=== PATIENT | female | born 1995 | race American Indian/Alaskan Native ===

== ENCOUNTER → 2016-10-22 | Outpatient (CLI) | payer MEDICAID | END | disposition home or self-care (01) | LOC: MW.CHOBGYN 14:43 | PROVIDERS: ATTEND Obstetrics & Gynecology | DX: Z34.90 Encounter for supervision of normal pregnancy, unspecified, unspecified trimester (principal) | CPT/HCPCS: 87070; 87491; 87591 ==

== ENCOUNTER → 2016-11-19 | Outpatient (CLI) | payer MEDICAID | LOC: MW.CHOBGYN 08:53 | PROVIDERS: ATTEND Obstetrics & Gynecology | DX: Z34.90 Encounter for supervision of normal pregnancy, unspecified, unspecified trimester (principal) | CPT/HCPCS: 81003 ==

== ENCOUNTER → 2016-12-17 | Outpatient (CLI) | payer MEDICAID | LOC: MW.CHOBGYN 08:39 | PROVIDERS: ATTEND Obstetrics & Gynecology | DX: Z34.90 Encounter for supervision of normal pregnancy, unspecified, unspecified trimester (principal) | CPT/HCPCS: 36415; 81003; 82105; 82677; 84702; 85027; 86336; 86592; 86762; 86803; 86850; 86900; 86901; 87086; 87340; 87389 ==

== ENCOUNTER → 2016-12-24 | Outpatient (CLI) | payer MEDICAID ==
--- NOTE | 2016-12-24 16:32 | US ---
Examination: Greater than 14 weeks transabdominal ultrasound with color Doppler and M-mode evaluatio n. HISTORY: Screening FINDINGS: LMP is 08/20/2016 EVALUATION: Anterior placenta with a transverse lie and grade 1. Visually amniotic fluid is wi thin normal limits. Three-vessel cord is seen. Ventricles are within normal limits. Nuchal fold thickness is 4 mm. Four chamber heart is noted. Heart rate is 150 beats per minute. BIOMETRY AND GESTATIONAL AGE: Biparietal diameter 4.0 cm. Abdominal circumference is 13 cm. The femoral length is 2.5 cm with head circumference of 14.9 cm. Gestational age is 18 weeks and 0 days. The expected date of delivery is approximately 05/27/2017. Fetus weight is 220 grams. Other detail anatomy summarized into PACs sheet after the images. No anatomical anomalies. IMPRESSION: Single active IU with transverse fetus. Anterior placenta with grade 1, no placenta previa . No anomalies are seen. Amniotic fluid appears within normal limits.
== END ==
LOC: MW.US 09:58
PROVIDERS: ATTEND Obstetrics & Gynecology
DX: Z36 Encounter for antenatal screening of mother (principal); Z3A.18 18 weeks gestation of pregnancy
CPT/HCPCS: 76805; 76805-26

== ENCOUNTER 2017-02-07 10:02 | Observation (INO) | payer MEDICAID ==
[2017-02-07] MEDS ORDERED: Acetaminophen 500 MG Tab PO ONE (11:19)
== END 2017-02-07 11:31 | disposition home or self-care (01) ==
LOC: MW.OBCHECK 10:02 → MW.OB 10:11 → MW.OBCHECK 10:28
PROVIDERS: ADMIT Obstetrics & Gynecology; ATTEND Obstetrics & Gynecology
DX: O99.89 Other specified diseases and conditions complicating pregnancy, childbirth and the puerperium (principal); M54.5 Low back pain; Z3A.26 26 weeks gestation of pregnancy; O99.512 Diseases of the respiratory system complicating pregnancy, second trimester; J45.909 Unspecified asthma, uncomplicated; Z88.0 Allergy status to penicillin; Z98.890 Other specified postprocedural states
CPT/HCPCS: 59025; 81003; A9270

== ENCOUNTER 2017-03-10 15:37 | Emergency (ER) | payer MEDICAID ==
--- NOTE | 2017-03-10 16:12 | EDM.PDOC ---
ED HPI GENERAL MEDICAL PROBLEM - General Chief Complaint: General Stated Complaint: LEFT SIDE NUMBNESS Time Seen by Provider: 03/10/17 15:56 - History of Present Illness INITIAL COMMENTS - FREE TEXT/NARRATIVE: HISTORY AND PHYSICAL: History of present illness: The patient is a 21-year-old female who is 28 weeks who presents to the ER to be evaluated for new numbness sensation of her left side of her body from her axillary area to her left knee that has been ongoing for the last 3 weeks. The patient was seen up in labor and delivery earlier for poor movement and was cleared with an NST. She presents for evaluation of this problem. She feels like it's not getting any better. She has already spoken to her OB M.D. about this who thought that maybe she might have a pinched nerve. The patient has no weakness in her extremities upper or lower has no shortness of breath fever chills chest pain or abdominal pain. She says that the symptoms wax and wane in intensity but have been there consistently for 3 weeks. It is in a stripe-like distribution and does not go to her anterior chest wall or trunk and does not go past her knee and also does not extend to her back. There are no rashes in the area of the skin is not burning itchy or painful. She really came to the ER because she thought he could get this checked out. The patient says that the numbness sensation is not in her face she has no trouble speaking or swallowing and is eating normally. Review of systems: As per history of present illness and below otherwise all systems reviewed and negative. Past medical history: As per history of present illness and as reviewed below otherwise noncontributory. Surgical history: As per history of present illness and as reviewed below otherwise noncontributory. Social history: No reported history of drug or alcohol abuse. Family history: As per history of present illness and as reviewed below otherwise noncontributory. Physical exam: General: Well-developed overweight female who is nontoxic and vital signs were noted by me HEENT: Atraumatic, normocephalic, pupils reactive, negative for conjunctival pallor or scleral icterus, mucous membranes moist, throat clear, neck supple, nontender, trachea midline. Lungs: Clear to auscultation, breath sounds equal bilaterally, chest nontender. Heart: S1S2, regular rate and rhythm no overt murmurs Abdomen: Soft, nondistended, nontender. Gravid nontender uterus is appreciated on abdominal exam Negative for costovertebral tenderness. Pelvis: Stable nontender. Genitourinary: Deferred. Rectal: Deferred. Extremities: Atraumatic, negative for cords or calf pain. Neurovascular unremarkable. Full range of motion without any defects or deficits Neuro: Awake, alert, oriented. Cranial nerves II through XII unremarkable. Cerebellum unremarkable. Motor and sensory unremarkable throughout. Exam nonfocal. There is no drift in the extremities and the strength is 5/5 throughout including dorsi and plantarflexion and inclusive of the great toe. Patient ambulated into the ED without distress. Back: There are no midline step-offs in his defects of the thoracic or lumbar spine and no posterior rib tenderness. Skin: Normal turgor there is no evidence of any rashes or lesions seen in the area the patient is describing underneath the axillary area laterally down to her leg. Diagnostics: [] Therapeutics: [] I discussed with the patient that we are extremely limited in evaluating this type of problem in the ED and in light of her 20 week we are even more limited. What she is describing does not follow any dermatomal distribution and is not consistent with a stripe-like distribution she describes. She has no weakness and I will give her referral to neurology that she can schedule an appointment although she is aware that due to her she may be limited in that evaluation as well. Impression: Paresthesias Definitive disposition and diagnosis as appropriate pending reevaluation and review of above. - Related Data Allergies Allergy/AdvReac Type Severity Reaction Status Date / Time Penicillins Allergy Anaphylactic Verified 03/07/16 01:33 Shock Home Meds: Home Meds . 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 Below) Other OB/BYN History: c section Neurological History: Reports: Seizure Psychiatric History: Reports: Anxiety, Depression, PTSD Endocrine/Metabolic History: Reports: None - Past Surgical History HEENT Surgical History: Reports: Tonsillectomy, Other (See Below) Social & Family History - Family History Family Medical History: Noncontributory - Tobacco Use Smoking Status *Q: Current Every Day Smoker Years of Tobacco use: 14 Packs/Tins Daily: 1 Second Hand Smoke Exposure: No - Caffeine Use Caffeine Use: Reports: Soda - Recreational Drug Use Recreational Drug Use: No ED ROS GENERAL - Review of Systems Review Of Systems: ROS reveals no pertinent complaints other than HPI. ED EXAM, GENERAL - Physical Exam Exam: See Below (See dictation) Course - Vital Signs Last Recorded V/S: Last Vital Signs Temp 36.6 C 03/10/17 15:52 Pulse 83 03/10/17 15:52 Resp 20 03/10/17 15:52 BP 118/66 03/10/17 15:52 Pulse Ox 97 03/10/17 15:52 Departure - Departure Time of Disposition: 16:11 Disposition: Home, Self-Care 01 Condition: Good Clinical Impression: Paresthesia - Discharge Information Forms: ED Department Discharge Additional Instructions: The following information is given to patients seen in the emergency department who are being discharged to home. This information is to outline your options for follow-up care. We provide all patients seen in our emergency department with a follow-up referral. The need for follow-up, as well as the timing and circumstances, are variable depending upon the specifics of your emergency department visit. If you don't have a primary care physician on staff, we will provide you with a referral. We always advise you to contact your personal physician following an emergency department visit to inform them of the circumstance of the visit and for follow-up with them and/or the need for any referrals to a consulting specialist. The emergency department will also refer you to a specialist when appropriate. This referral assures that you have the opportunity for followup care with a specialist. All of these measure are taken in an effort to provide you with optimal care, which includes your followup. Under all circumstances we always encourage you to contact your private physician who remains a resource for coordinating your care. When calling for followup care, please make the office aware that this follow-up is from your recent emergency room visit. If for any reason you are refused follow-up, please contact the [facility] emergency department at and ask to speak to the emergency department charge nurse. [address] [place] [address] [facility] Specialty care-Neurology Professional Building [address] [place] [address], [address] [place] [address] Please contact her provider, Dr. Pool, at [facility] for further care and evaluation of this problem and also you may contact our neurologist for an appointment with her. Keep all of your care appointment in the women's clinic and return to ER as needed and as discussed
[2017-03-10 16:27] VITALS: BP 130/80
== END 2017-03-10 16:20 | disposition home or self-care (01) ==
LOC: MW.ED 15:37
DX: O99.89 Other specified diseases and conditions complicating pregnancy, childbirth and the puerperium (principal); O99.513 Diseases of the respiratory system complicating pregnancy, third trimester; O99.333 Smoking (tobacco) complicating pregnancy, third trimester; R20.0 Anesthesia of skin; F17.210 Nicotine dependence, cigarettes, uncomplicated; Z98.890 Other specified postprocedural states; Z88.0 Allergy status to penicillin; Z3A.28 28 weeks gestation of pregnancy
CPT/HCPCS: 99282; 99283

== ENCOUNTER 2017-05-12 14:39 | Inpatient (IN) | payer MEDICAID ==
[2017-05-12] MEDS ORDERED: Butorphanol 1 MG/ML SDV IVPUSH PRN (15:47)
[2017-05-12] MEDS ORDERED: Sodium Chloride 0.9% 2.5 ML Syringe FLUSH PRN ×4 (15:47→19:41)
[2017-05-12] MEDS ORDERED: Sodium Chloride 0.9% 10 ML Syringe FLUSH PRN ×4 (15:47→19:41)
[2017-05-12] MEDS ORDERED: Lactated Ringers 1,000 ML IV SCH ×5 (16:00→22:30)
--- NOTE | 2017-05-12 18:57 | PCM.LDHP ---
L&D History of Present Illness - General Date of Service: 05/12/17 Admit Problem/Dx: Patient Status Order with Admit Dx/Problem 05/12/17 15:06 Patient Status [ADT] Routine Admission Diagnosis/Problem Admission Diagnosis/Problem 05/12/17 18:48 21 yo @ 37w6d (Previous X1 @ 35weeks for PIH ) complaining of contractions. she denies LOF , VB and reports FM. Patient recieved care at [facility] with Shira Hunt. Low risk patient She recieved care from 9 weeks X 10visits BP during antepartum visit - wnl PNL; B positive , Antibody negative , rubella - immune , Syphilis - negative , HIV - negative , GC/Cc - negative Source of Information: Patient History Limitations: Reports: No Limitations - Related Data Allergies/Adverse Reactions: Allergies Allergy/AdvReac Type Severity Reaction Status Date / Time Penicillins Allergy Anaphylactic Verified 03/07/16 01:33 Shock Home Medications: Home Meds . 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 Social & Family History - Family History Family Medical History: Noncontributory - Tobacco Use Smoking Status *Q: Current Every Day Smoker Years of Tobacco use: 6 Packs/Tins Daily: 1 Used Tobacco, but Quit: No Second Hand Smoke Exposure: Yes - Caffeine Use Caffeine Use: Reports: None - Recreational Drug Use Recreational Drug Use: No H&P Review of Systems - Review of Systems: Review Of Systems: See Below General: Reports: No Symptoms HEENT: Reports: No Symptoms Pulmonary: Reports: No Symptoms Cardiovascular: Reports: No Symptoms Gastrointestinal: Reports: No Symptoms Genitourinary: Reports: No Symptoms Musculoskeletal: Reports: No Symptoms Skin: Reports: No Symptoms Psychiatric: Reports: No Symptoms Neurological: Reports: No Symptoms Hematologic/Lymphatic: Reports: No Symptoms Immunologic: Reports: No Symptoms L&D Exam - Exam Exam: See Below - Vital Signs Vital Signs: 130s - 140s / 70s- 80s , HR;- 80- 90s Weight: 104.326 kg - OB Specific Fundal Height In cm: 37 Contraction Duration (sec): 60secs Contraction Frequency (min): 3 mins Contraction Intensity: Mild to Moderate Movement: Active Heart Tones: Present Heart Rate (FHR) Variability: Moderate (6-25 bmp) Presentation: Vertex Estimated Weight: 3200 - Edgar Score Edgar Score Cervix Position: Midposition Edgar Score Consistency: Medium Edgar Score Effacement: 31-50% Edgar Score Dilation: 1-2 cm Edgar Score Infant's Station: -2 Edgar Score Total: 5 - Exam General: Alert, Oriented Lungs: Clear to Auscultation Cardiovascular: Regular Rate, Regular Rhythm GI/Abdominal Exam: Normal Bowel Sounds, Other (gravid) Genitourinary: Cervical dilitation (09/03/-2 ) Back Exam: Normal Inspection Extremities: Normal Inspection Skin: Warm Neurological: Cranial Nerves Intact Psychiatric: Alert - Problem List (1) Previous section complicating SNOMED Code(s): 964249231 ICD Code: O34.219 - MATERNAL CARE FOR UNSP TYPE SCAR FROM PREVIOUS DEL Status: Acute Current Visit: Yes Problem List Initiated/Reviewed/Updated: Yes Orders Last 24hrs: Active Orders 24 hr Category Date Time Status Patient Status [ADT] Routine ADT 05/12/17 15:06 Active Non Stress Test [RC] PER UNIT ROUTINE Care 05/12/17 15:06 Active Peripheral IV Care [RC] . DIRECTED Care 05/12/17 15:47 Active Up ad Cyndi [RC] ASDIRECTED Care 05/12/17 15:06 Active Vaginal Exam [RC] Click to Edit Care 05/12/17 15:06 Active Vital Signs [RC] PER UNIT ROUTINE Care 05/12/17 15:06 Active Butorphanol [Stadol] Med 05/12/17 15:47 Active 1 mg IVPUSH ONETIME PRN Lactated Ringers [Ringers, Lactated] 1,000 ml Med 05/12/17 16:00 Active IV .BOLUS Sodium Chloride 0.9% [Saline Flush] Med 05/12/17 15:47 Active 10 ml FLUSH ASDIRECTED PRN Sodium Chloride 0.9% [Saline Flush] Med 05/12/17 15:47 Active 2.5 ml FLUSH ASDIRECTED PRN Peripheral IV Insertion Adult [OM.PC] Routine Oth 05/12/17 15:47 Ordered Resuscitation Status Routine Resus Stat 05/12/17 15:06 Ordered Medication Orders Butorphanol Tartrate (Stadol) 1 mg IVPUSH ONETIME PRN PRN Reason: contractions Lactated Ringer's (Ringers, Lactated) 1,000 mls @ 999 mls/hr IV .BOLUS JUAN RAMON Last Admin: 05/12/17 16:05 Dose: 999 mls/hr Sodium Chloride (Saline Flush) 10 ml FLUSH ASDIRECTED PRN PRN Reason: Keep Vein Open Sodium Chloride (Saline Flush) 2.5 ml FLUSH ASDIRECTED PRN PRN Reason: Keep Vein Open Assessment/Plan Comment:: 21yo @ 37w6d admitted for previous in labor, 1 increased BP Plan NPO IVF Mefoxin and Bicitria Consent for PIH labs Urine protein
[2017-05-12] MEDS ORDERED: Clindamycin Phosphate in D5W 900 MG in Premix Bag 1 BAG IV ONE ×4 (19:23→19:45)
[2017-05-12] MEDS ORDERED: Gentamicin Pediatric 10 MG/ML 2 ML SDV IV SCH ×2 (19:30→20:00)
[2017-05-12] MEDS ORDERED: Citric Acid/Sodium Citrate Solution 30 ML Cup PO SCH ×3 (19:30→19:45)
[2017-05-12] MEDS ORDERED: Oxytocin/0.9 % Sodium Chloride 30 UNIT/500 ML BAG IV SCH ×3 (19:30→19:45)
[2017-05-12] MEDS ORDERED: Morphine PF 10 MG/10 ML SDV ONE (19:40)
[2017-05-12] MEDS ORDERED: Clindamycin Phosphate in D5W 50 ML IV ONE (19:50)
--- NOTE | 2017-05-12 20:00 | PCM.PREANE ---
Preanesthetic Assessment - Anesthesia/Transfusion/Family Hx Anesthesia History: Prior Anesthesia Without Reaction Family History of Anesthesia Reaction: No Transfusion History: No Prior Transfusion(s) - Review of Systems General: Other (active labor) Pulmonary: No Symptoms Cardiovascular: No Symptoms Gastrointestinal: No Symptoms Neurological: No Symptoms Other: Reports: None - Physical Assessment NPO Status Date: 05/12/17 NPO Status Time: 13:00 Height: 1.65 m Weight: 104.326 kg ASA Class: 2 Mental Status: Alert & Oriented x3 Airway Class: Mallampati = 2 Dentition: Reports: Normal Dentition (tongue stud) Lungs: Clear to Auscultation, Normal Respiratory Effort Cardiovascular: Regular Rate, Regular Rhythm - Lab Values: Laboratory Last Values WBC 12.99 K/uL (4.0-11.0) H 05/12/17 19:45 RBC 4.54 M/uL (4.30-5.90) 05/12/17 19:45 Hgb 12.5 g/dL (12.0-16.0) 05/12/17 19:45 Hct 37.3 % (36.0-46.0) 05/12/17 19:45 MCV 82.2 fL (80.0-98.0) 05/12/17 19:45 MCH 27.5 pg (27.0-32.0) 05/12/17 19:45 MCHC 33.5 g/dL (31.0-37.0) 05/12/17 19:45 RDW Std Deviation 42.3 fl (28.0-62.0) 05/12/17 19:45 RDW Coeff of Jagdeep 14 % (11.0-15.0) 05/12/17 19:45 Plt Count 388 K/uL (150-400) 05/12/17 19:45 MPV 9.90 fL (7.40-12.00) 05/12/17 19:45 Nucleated RBC % 0.0 /100WBC 05/12/17 19:45 Nucleated RBCs # 0 K/uL 05/12/17 19:45 - Allergies Allergies/Adverse Reactions: Allergies Allergy/AdvReac Type Severity Reaction Status Date / Time Penicillins Allergy Anaphylactic Verified 03/07/16 01:33 Shock - Anesthesia Plan Pre-Op Medication Ordered: Antacids, Other (clindamycin plus gent) - Acknowledgements Anesthesia Type Planned: Spinal Pt an Appropriate Candidate for the Planned Anesthesia: Yes Alternatives and Risks of Anesthesia Discussed w Pt/Guardian: Yes Pt/Guardian Understands and Agrees with Anesthesia Plan: Yes PreAnesthesia Questionnaire - Past Health History Medical/Surgical History: Denies Medical/Surgical History Cardiovascular History: Reports: None Respiratory History: Reports: Asthma Gastrointestinal History: Reports: None 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 - SUBSTANCE USE Smoking Status *Q: Current Every Day Smoker Tobacco Use Within Last Twelve Months: Cigarettes, Other (See Below) Second Hand Smoke Exposure: Yes Recreational Drug Use History: No - HOME MEDS Home Medications: Home Meds . [No Known Home Meds] 01/03/16 [History] - CURRENT (IN HOUSE) MEDS Current Meds: Current Medications Butorphanol Tartrate (Stadol) 1 mg IVPUSH ONETIME PRN PRN Reason: contractions Citric Acid/Sodium Citrate (Bicitra Solution) 30 ml PO .ONCE JUAN RAMON Last Admin: 05/12/17 19:56 Dose: 30 ml Gentamicin Sulfate (Gentamicin) 300 mg IV Q12H JUAN RAMON Lactated Ringer's (Ringers, Lactated) 1,000 mls @ 500 mls/hr IV .BOLUS JUAN RAMON Last Admin: 05/12/17 19:56 Dose: 500 mls/hr Oxytocin/Sodium Chloride (Oxytocin 30 Unit/500 Ml-Ns) 30 unit in 500 mls @ 250 mls/hr IV TITRATE JUAN RAMON Sodium Chloride (Saline Flush) 10 ml FLUSH ASDIRECTED PRN PRN Reason: Keep Vein Open Sodium Chloride (Saline Flush) 2.5 ml FLUSH ASDIRECTED PRN PRN Reason: Keep Vein Open Discontinued Medications Citric Acid/Sodium Citrate (Bicitra Solution) 30 ml PO .ONCE JUAN RAMON Gentamicin Sulfate (Gentamicin) 300 mg IV Q12H JUAN RAMON Lactated Ringer's (Ringers, Lactated) 1,000 mls @ 999 mls/hr IV .BOLUS JUAN RAMON Last Admin: 05/12/17 16:05 Dose: 999 mls/hr Oxytocin/Sodium Chloride (Oxytocin 30 Unit/500 Ml-Ns) 30 unit in 500 mls @ 250 mls/hr IV TITRATE JUAN RAMON Lactated Ringer's (Ringers, Lactated) 1,000 mls @ 500 mls/hr IV .BOLUS JUAN RAMON Clindamycin Phosphate 900 mg/ (Premix) 50 mls @ 100 mls/hr IV ASDIRECTED ONE Stop: 05/12/17 19:52 Lactated Ringer's (Ringers, Lactated) 1,000 mls @ 500 mls/hr IV .BOLUS JUAN RAMON Oxytocin/Sodium Chloride (Oxytocin 30 Unit/500 Ml-Ns) 30 unit in 500 mls @ 250 mls/hr IV TITRATE JUAN RAMON Clindamycin Phosphate 900 mg/ (Premix) 50 mls @ 100 mls/hr IV ASDIRECTED ONE Stop: 05/12/17 19:52 Last Admin: 05/12/17 19:55 Dose: 100 mls/hr Clindamycin Phosphate (Cleocin In D5w) Confirm Administered Dose 50 mls @ as directed IV .STK-MED ONE Stop: 05/12/17 19:51 Morphine Sulfate (Duramorph Pf) Confirm Administered Dose 10 mg .ROUTE .STK-MED ONE Stop: 05/12/17 19:41 Sodium Chloride (Saline Flush) 10 ml FLUSH ASDIRECTED PRN PRN Reason: Keep Vein Open Sodium Chloride (Saline Flush) 2.5 ml FLUSH ASDIRECTED PRN PRN Reason: Keep Vein Open Sodium Chloride (Saline Flush) 10 ml FLUSH ASDIRECTED PRN PRN Reason: Keep Vein Open Sodium Chloride (Saline Flush) 2.5 ml FLUSH ASDIRECTED PRN PRN Reason: Keep Vein Open Sodium Chloride (Saline Flush) 10 ml FLUSH ASDIRECTED PRN PRN Reason: Keep Vein Open Sodium Chloride (Saline Flush) 2.5 ml FLUSH ASDIRECTED PRN PRN Reason: Keep Vein Open
[2017-05-12] MEDS ORDERED: SODIUM CHLORIDE 0.9% IV ONE (20:15)
[2017-05-12] MEDS ORDERED: GENTAMICIN IV ONE (20:15)
[2017-05-12 20:22] LABS: CHLORIDE,CL 109 mmol/L (98-110); SODIUM,NA 136 mmol/L (136-146)
[2017-05-12] MEDS ORDERED: Oxytocin 10 Units/1 ML SDV ONE (21:09)
[2017-05-12] MEDS ORDERED: ePHEDrine 50 MG/ML SDV ONE (21:09)
[2017-05-12] MEDS ORDERED: Phenylephrine/Normal Saline 100 MCG/ML 10 ML Syringe ONE (21:09)
[2017-05-12] MEDS ORDERED: Midazolam 1 MG/ML 2 ML SDV ONE (21:10)
[2017-05-12] MEDS ORDERED: diphenhydrAMINE 50 MG/ML SDV IVPUSH PRN ×2 (21:59→22:21)
[2017-05-12] MEDS ORDERED: Naloxone 0.4 MG/ML Syringe IVPUSH PRN (21:59)
[2017-05-12] MEDS ORDERED: fentaNYL 100 MCG/2 ML SDV IVPUSH PRN (22:01)
[2017-05-12] MEDS ORDERED: Acetaminophen/oxyCODONE 325-5 MG Tab PO PRN ×2 (22:01→22:21)
--- NOTE | 2017-05-12 22:03 | PCM.OPNOTE ---
- General Post-Op/Procedure Note Date of Surgery/Procedure: 05/12/17 Operative Procedure(s): Repeat lower transverse Findings: Live male delivered @ 841pm , Wt 2830g , 8/9 , Pre Op Diagnosis: 21 yo @37w6d Previous in labor Post-Op Diagnosis: s/p Repeat LTCS Anesthesia Technique: Spinal Primary Surgeon: Deneen Rodriguez Anesthesia Provider: Dr Carrion Fluid Replacement, Intraop: 3,500 Output, Urine Amount: 100 EBL in mLs: 600 Free Text/Narrative:: Intake & Output 05/12/17 05/12/17 05/12/17 06:59 14:59 22:59 Output Total 100 Balance -100
[2017-05-12] MEDS ORDERED: Ibuprofen 800 MG Tab PO PRN (22:21)
[2017-05-12] MEDS ORDERED: Bisacodyl 10 MG Supp RECTAL PRN (22:21)
[2017-05-12] MEDS ORDERED: Ondansetron 4 MG/2 ML SDV IV PRN (22:21)
[2017-05-12] MEDS ORDERED: Lanolin 100% Cream 7 GM Tube TOP PRN (22:21)
--- NOTE | 2017-05-12 22:30 | PCM.POSTAN ---
POST ANESTHESIA ASSESSMENT - MENTAL STATUS Mental Status: Alert, Oriented - RESPIRATORY Respiratory Status: Respiratory Rate WNL, Airway Patent, O2 Saturation Stable - CARDIOVASCULAR CV Status: Pulse Rate WNL, Blood Pressure Stable - GASTROINTESTINAL GI Status: No Symptoms - PAIN Pain Score: 0 - POST OP HYDRATION Hydration Status: Adequate & Stable
[2017-05-12] MEDS: Ketorolac 30 MG/ML SDV IVPUSH SCH (23:30)
--- NOTE | 2017-05-13 00:17 | OR ---
SURGEON: JABARI ACKERMAN DATE OF PROCEDURE: 05/12/2017 PREOPERATIVE DIAGNOSIS: A 21-year-old G2, P0-1-0 at 36 weeks 6 days with the history of previous cesarian section and labor. POSTOPERATIVE DIAGNOSIS: S/P repeat lower transverse cesarian section. ANESTHESIA: Spinal. ANESTHESIA PROVIDER: Dr. Carrion. FLUID: 500. ESTIMATED BLOOD LOSS: 600. OUTPUT: 100. FINDINGS: A live male delivered at 2041 hours. score was 8 and 9. Weight is 2830gm. Three-vessel cord noted. INDICATIONS: The patient presented to triage with contraction which started 2 days ago. The patient was examined. She was closed, long, posterior. Then she was reexamined she was . After observation the contractions in the monitor increased from 1 in 10 minutes to 1 in 3 to 4 minutes. As result of change in the patient's exam and history of previous , the patient was consented for repeat lower transverse C- section and the patient agreed the procedure. NARRATIVE: The patient was taken to the operating room, where spinal anesthesia was given without difficulty. The patient was placed in dorsal supine position with leftward tilt. A Pfannenstiel skin incision was made with scalpel and carried down to the fascia with Bovie. The fascia was incised and extended laterally. The fascia was from the rectus muscle superiorly and inferiorly. The rectus muscle was then in the midline down to the level of the pubic symphysis. The peritoneum was then entered in bluntly. The peritoneum was stretched to explore the bladder. The bladder blade was placed to put the bladder out of the operating field. The bladder incision was then made. The lower uterine segment was made which was then extended manually upwards and laterally. The fetus was cephalic position. The head was held and the membrane was ruptured. The head was brought to the operating field and fundal pressure was given to help deliver the head. with continous pressure, the shoulder and body was subsequently delivered. The cord was clamped and cut. The infant was then delivered to the awaiting cds sales advisor. The placenta was then delivered. The uterine incision was then sutured in one layer with 0 Vicryl in continuous locking fashion and hemostasis was noted, then the peritoneum was closed with 2-0 Vicryl in a continuous fashion and fascia was closed with 0 Vicryl in the continuous fashion. The subcutaneous fascia was also closed with 2-0 Monocryl and the skin was closed with 3-0 Vicryl in a Gavin needle. All instruments and pads counts were correct x2. The patient tolerated the procedure well and was taken to the recovery room in stable condition. MARTY FAIRCHILD /[id number] [id number]
[2017-05-13] MEDS: Ketorolac 30 MG/ML SDV IVPUSH SCH ×4 (05:30→22:04)
[2017-05-13] MEDS: Nalbuphine 10 MG/1 ML Vial IVPUSH PRN ×2 (06:12→17:55)
[2017-05-13] MEDS: Docusate Sodium 100 MG Cap PO SCH ×2 (09:50→20:01)
--- NOTE | 2017-05-13 11:15 | PCM.PNPP ---
- General Info Date of Service: 05/13/17 Functional Status: Reports: Pain Controlled, Tolerating Diet, Ambulating, Urinating - Review of Systems General: Reports: No Symptoms HEENT: Reports: No Symptoms Pulmonary: Reports: No Symptoms Cardiovascular: Reports: No Symptoms Gastrointestinal: Reports: No Symptoms Genitourinary: Reports: No Symptoms Musculoskeletal: Reports: No Symptoms Skin: Reports: No Symptoms Neurological: Reports: No Symptoms Psychiatric: Reports: No Symptoms - Patient Data Vital Signs - Most Recent: Last Vital Signs Temp 37.1 C 05/13/17 08:00 Pulse 114 H 05/13/17 08:00 Resp 16 05/13/17 11:00 BP 110/54 L 05/13/17 08:00 Pulse Ox 93 L 05/13/17 11:00 Weight - Most Recent: 104.326 kg I&O - Last 24 Hours: Intake & Output 05/12/17 05/13/17 05/13/17 22:59 06:59 14:59 Intake Total 7500 500 Output Total 420 350 Balance 7080 150 Lab Results - Last 24 Hours: Laboratory Results - last 24 hr 05/12/17 05/12/17 05/12/17 Range/Units 19:45 19:45 19:45 WBC 12.99 H (4.0-11.0) K/uL RBC 4.54 (4.30-5.90) M/uL Hgb 12.5 (12.0-16.0) g/dL Hct 37.3 (36.0-46.0) % MCV 82.2 (80.0-98.0) fL MCH 27.5 (27.0-32.0) pg MCHC 33.5 (31.0-37.0) g/dL RDW Std Deviation 42.3 (28.0-62.0) fl RDW Coeff of Jagdeep 14 (11.0-15.0) % Plt Count 388 (150-400) K/uL MPV 9.90 (7.40-12.00) fL Nucleated RBC % 0.0 /100WBC Nucleated RBCs # 0 K/uL INR 0.92 (0.86-1.11) Fibrinogen 403 (215-411) mg/dL Sodium 136 (136-146) mmol/L Potassium 3.9 (3.5-5.1) mmol/L Chloride 109 (98-110) mmol/L Carbon Dioxide 19 L (21-31) mmol/L BUN 10 (6.0-23.0) mg/dL Creatinine 0.5 L (0.6-1.5) mg/dL Est Cr Clr Drug Dosing 161.50 mL/min Estimated GFR (MDRD) > 60.0 ml/min Glucose 74 (60-110) mg/dL Uric Acid 3.9 (2.1-6.2) mg/dL Calcium 8.7 L (8.8-10.8) mg/dL Total Bilirubin 0.3 (0.1-1.5) mg/dL AST 14 (5-40) IU/L ALT 10 (8-54) IU/L Alkaline Phosphatase 185 H (40-150) Total Protein 6.1 (6.0-8.0) g/dL Albumin 3.0 L (3.5-5.0) g/dL Globulin 3.1 (2.0-3.5) g/dL Albumin/Globulin Ratio 1.0 L (1.3-2.8) Blood Type Antibody Screen 05/12/17 05/13/17 Range/Units 19:45 05:31 WBC (4.0-11.0) K/uL RBC (4.30-5.90) M/uL Hgb 10.6 L (12.0-16.0) g/dL Hct 32.1 L (36.0-46.0) % MCV (80.0-98.0) fL MCH (27.0-32.0) pg MCHC (31.0-37.0) g/dL RDW Std Deviation (28.0-62.0) fl RDW Coeff of Jagdeep (11.0-15.0) % Plt Count (150-400) K/uL MPV (7.40-12.00) fL Nucleated RBC % /100WBC Nucleated RBCs # K/uL INR (0.86-1.11) Fibrinogen (215-411) mg/dL Sodium (136-146) mmol/L Potassium (3.5-5.1) mmol/L Chloride (98-110) mmol/L Carbon Dioxide (21-31) mmol/L BUN (6.0-23.0) mg/dL Creatinine (0.6-1.5) mg/dL Est Cr Clr Drug Dosing mL/min Estimated GFR (MDRD) ml/min Glucose (60-110) mg/dL Uric Acid (2.1-6.2) mg/dL Calcium (8.8-10.8) mg/dL Total Bilirubin (0.1-1.5) mg/dL AST (5-40) IU/L ALT (8-54) IU/L Alkaline Phosphatase (40-150) Total Protein (6.0-8.0) g/dL Albumin (3.5-5.0) g/dL Globulin (2.0-3.5) g/dL Albumin/Globulin Ratio (1.3-2.8) Blood Type B POSITIVE Antibody Screen NEGATIVE Med Orders - Current: Current Medications Bisacodyl (Dulcolax) 10 mg RECTAL .ONCE PRN PRN Reason: Constipation Butorphanol Tartrate (Stadol) 1 mg IVPUSH ONETIME PRN PRN Reason: contractions Citric Acid/Sodium Citrate (Bicitra Solution) 30 ml PO .ONCE [facility] Last Admin: 05/12/17 19:56 Dose: 30 ml Diphenhydramine HCl (Benadryl) 25 mg IVPUSH Q4H PRN PRN Reason: Itching Stop: 05/13/17 22:00 Diphenhydramine HCl (Benadryl) 25 mg IVPUSH Q6H PRN PRN Reason: Itching or Nausea Docusate Sodium (Colace) 100 mg PO BID [facility] Emollient Ointment (Lansinoh Hpa) 0 gm TOP ASDIRECTED PRN PRN Reason: Sore Nipples Fentanyl (Sublimaze) 25 - 50 mcg IVPUSH Q30M PRN PRN Reason: Pain Lactated Ringer's (Ringers, Lactated) 1,000 mls @ 500 mls/hr IV .BOLUS [facility] Last Admin: 05/12/17 19:56 Dose: 500 mls/hr Oxytocin/Sodium Chloride (Oxytocin 30 Unit/500 Ml-Ns) 30 unit in 500 mls @ 250 mls/hr IV TITRATE JUAN RAMON Lactated Ringer's (Ringers, Lactated) 1,000 mls @ 125 mls/hr IV ASDIRECTED [facility] Last Admin: 05/13/17 01:30 Dose: 125 mls/hr Ibuprofen (Motrin) 800 mg PO Q8H PRN PRN Reason: mild pain or fever Ketorolac Tromethamine (Toradol) 30 mg IVPUSH Q6H JUAN RAMON Stop: 05/13/17 22:31 Last Admin: 05/13/17 10:30 Dose: 30 mg Nalbuphine HCl (Nubain) 5 mg IVPUSH Q3H PRN PRN Reason: Pruritis Stop: 05/13/17 22:00 Last Admin: 05/13/17 06:12 Dose: 5 mg Naloxone HCl (Narcan) 0.1 mg IVPUSH ONETIME PRN PRN Reason: Other Stop: 05/13/17 22:00 Ondansetron HCl (Zofran) 4 mg IV Q4H PRN PRN Reason: Nausea/Vomiting Last Admin: 05/13/17 01:30 Dose: 4 mg Oxycodone/Acetaminophen (Percocet 325-5 Mg) 1 - 2 tab PO Q6H PRN PRN Reason: Pain Stop: 05/14/17 14:00 Oxycodone/Acetaminophen (Percocet 325-5 Mg) 1 tab PO Q4H PRN PRN Reason: Pain (moderate 4-6) Oxycodone/Acetaminophen (Percocet 325-5 Mg) 2 tab PO Q4H PRN PRN Reason: Pain (moderate 4-6) Sodium Chloride (Saline Flush) 10 ml FLUSH ASDIRECTED PRN PRN Reason: Keep Vein Open Sodium Chloride (Saline Flush) 2.5 ml FLUSH ASDIRECTED PRN PRN Reason: Keep Vein Open Discontinued Medications Citric Acid/Sodium Citrate (Bicitra Solution) 30 ml PO .ONCE JUAN RAMON Ephedrine Sulfate (Ephedrine Sulfate) Confirm Administered Dose 50 mg .ROUTE .STK-MED ONE Stop: 05/12/17 21:10 Gentamicin Sulfate (Gentamicin) 300 mg IV Q12H JUAN RAMON Gentamicin Sulfate (Gentamicin) 300 mg IV Q12H [facility] Lactated Ringer's (Ringers, Lactated) 1,000 mls @ 999 mls/hr IV .BOLUS [facility] Last Admin: 05/12/17 16:05 Dose: 999 mls/hr Oxytocin/Sodium Chloride (Oxytocin 30 Unit/500 Ml-Ns) 30 unit in 500 mls @ 250 mls/hr IV TITRATE JUAN RAMON Lactated Ringer's (Ringers, Lactated) 1,000 mls @ 500 mls/hr IV .BOLUS JUAN RAMON Clindamycin Phosphate 900 mg/ (Premix) 50 mls @ 100 mls/hr IV ASDIRECTED ONE Stop: 05/12/17 19:52 Lactated Ringer's (Ringers, Lactated) 1,000 mls @ 500 mls/hr IV .BOLUS JUAN RAMON Oxytocin/Sodium Chloride (Oxytocin 30 Unit/500 Ml-Ns) 30 unit in 500 mls @ 250 mls/hr IV TITRATE JUAN RAMON Clindamycin Phosphate 900 mg/ (Premix) 50 mls @ 100 mls/hr IV ASDIRECTED ONE Stop: 05/12/17 19:52 Last Admin: 05/12/17 19:55 Dose: 100 mls/hr Clindamycin Phosphate (Cleocin In D5w) Confirm Administered Dose 50 mls @ as directed IV .STK-MED ONE Stop: 05/12/17 19:51 Gentamicin Sulfate 300 mg/ (Sodium Chloride) 157.5 mls @ 315 mls/hr IV ONETIME ONE Stop: 05/12/17 20:44 Midazolam HCl (Versed 1 Mg/Ml) Confirm Administered Dose 2 mg .ROUTE .STK-MED ONE Stop: 05/12/17 21:11 Morphine Sulfate (Duramorph Pf) Confirm Administered Dose 10 mg .ROUTE .STK-MED ONE Stop: 05/12/17 19:41 Oxytocin (Pitocin) Confirm Administered Dose 40 unit .ROUTE .STK-MED ONE Stop: 05/12/17 21:10 Phenylephrine HCl (Phenylephrine In Ns 100 Mcg/Ml) Confirm Administered Dose 1 mg .ROUTE .STK-MED ONE Stop: 05/12/17 21:10 Sodium Chloride (Saline Flush) 10 ml FLUSH ASDIRECTED PRN PRN Reason: Keep Vein Open Sodium Chloride (Saline Flush) 2.5 ml FLUSH ASDIRECTED PRN PRN Reason: Keep Vein Open Sodium Chloride (Saline Flush) 10 ml FLUSH ASDIRECTED PRN PRN Reason: Keep Vein Open Sodium Chloride (Saline Flush) 2.5 ml FLUSH ASDIRECTED PRN PRN Reason: Keep Vein Open Sodium Chloride (Saline Flush) 10 ml FLUSH ASDIRECTED PRN PRN Reason: Keep Vein Open Sodium Chloride (Saline Flush) 2.5 ml FLUSH ASDIRECTED PRN PRN Reason: Keep Vein Open - Interaction Infant Disposition, : in Room with Family Interaction: Holding - Recovery Exam Fundal Tone: Firm Fundal Level: At Umbilicus Fundal Placement: Midline Lochia Amount: Scant Lochia Color: Rubra/Red Perineum Description: Intact, Minimal Bruising/Swelling Episiotomy/Laceration: None Bladder Status: Indwelling Catheter in Place Urinary Elimination: Indwelling Catheter - Exam General: Alert, Oriented HEENT: Pupils Equal Neck: Supple Lungs: Clear to Auscultation, Normal Respiratory Effort Cardiovascular: Regular Rate, Regular Rhythm GI/Abdominal Exam: Normal Bowel Sounds, Soft, Non-Tender, No Organomegaly, No Distention Extremities: Normal Range of Motion, Non-Tender, No Pedal Edema Skin: Warm, Dry, Intact Wound/Incisions: Dressing Dry and Intact Neurological: No New Focal Deficit Psy/Mental Status: Alert, Normal Affect, Normal Mood - Problem List & Annotations (1) Previous delivery affecting , delivered SNOMED Code(s): 307795283 Code(s): O34.219 - MATERNAL CARE FOR UNSP TYPE SCAR FROM PREVIOUS DEL Status: Acute Current Visit: Yes (2) Previous section complicating SNOMED Code(s): 967043208 Code(s): O34.219 - MATERNAL CARE FOR UNSP TYPE SCAR FROM PREVIOUS DEL Status: Acute Current Visit: Yes - Problem List Review Problem List Initiated/Reviewed/Updated: Yes - Assessment Assessment:: POD#1 after repeat , labor, stable minima lochia, tolerating diet. - Plan Plan:: Encourage ambulation, continue postop care, discussed use of pain medication after Duramorph wears off.
--- NOTE | 2017-05-13 17:56 | PCM48HPAN ---
Post Anesthesia Note - EVALUATION WITHIN 48HRS OF ANESTHETIC Vital Signs in Normal Range: Yes Patient Participated in Evaluation: Yes Respiratory Function Stable: Yes Airway Patent: Yes Cardiovascular Function Stable: Yes Hydration Status Stable: Yes Pain Control Satisfactory: Yes Nausea and Vomiting Control Satisfactory: Yes Mental Status Recovered: Yes
[2017-05-13] MEDS: Acetaminophen/oxyCODONE 325-5 MG Tab PO PRN (22:05)
[2017-05-14] MEDS: Acetaminophen/oxyCODONE 325-5 MG Tab PO PRN ×2 (01:52→08:02)
[2017-05-14] MEDS: Docusate Sodium 100 MG Cap PO SCH (08:15)
[2017-05-14 09:29] VITALS: BP 112/51
--- NOTE | 2017-05-14 10:09 | PCM.PNPP ---
- General Info Date of Service: 05/14/17 Admission Dx/Problem (Free Text): Patient Status Order with Admit Dx/Problem 05/12/17 15:06 Patient Status [ADT] Routine Admission Diagnosis/Problem Admission Diagnosis/Problem 21 yo now P1102 s/p repeat , POD2 she is ambulating , voiding and tolerating regular diet, not able to establish breast feeding yet Subjective Update: She denies any complains this morning. Pain is well controlled with pain medication , had negative LE doppler Functional Status: Reports: Pain Controlled, Tolerating Diet, Ambulating, Urinating - Review of Systems General: Reports: No Symptoms HEENT: Reports: No Symptoms Pulmonary: Reports: No Symptoms Cardiovascular: Reports: No Symptoms Gastrointestinal: Reports: No Symptoms Genitourinary: Reports: No Symptoms Musculoskeletal: Reports: No Symptoms Skin: Reports: No Symptoms Neurological: Reports: No Symptoms Psychiatric: Reports: No Symptoms - General Info Date of Service: 05/14/17 - Patient Data Vital Signs - Most Recent: Last Vital Signs Temp 36.5 C 05/14/17 07:45 Pulse 93 05/14/17 07:45 Resp 16 05/14/17 07:45 BP 112/51 L 05/14/17 07:45 Pulse Ox 96 05/14/17 07:45 Weight - Most Recent: 104.326 kg Med Orders - Current: Current Medications Bisacodyl (Dulcolax) 10 mg RECTAL .ONCE PRN PRN Reason: Constipation Butorphanol Tartrate (Stadol) 1 mg IVPUSH ONETIME PRN PRN Reason: contractions Citric Acid/Sodium Citrate (Bicitra Solution) 30 ml PO .ONCE JUAN RAMON Last Admin: 05/12/17 19:56 Dose: 30 ml Diphenhydramine HCl (Benadryl) 25 mg IVPUSH Q6H PRN PRN Reason: Itching or Nausea Docusate Sodium (Colace) 100 mg PO BID JUAN RAMON Last Admin: 05/14/17 08:15 Dose: 100 mg Emollient Ointment (Lansinoh Hpa) 0 gm TOP ASDIRECTED PRN PRN Reason: Sore Nipples Fentanyl (Sublimaze) 25 - 50 mcg IVPUSH Q30M PRN PRN Reason: Pain Lactated Ringer's (Ringers, Lactated) 1,000 mls @ 500 mls/hr IV .BOLUS JUAN RAMON Last Admin: 05/12/17 19:56 Dose: 500 mls/hr Oxytocin/Sodium Chloride (Oxytocin 30 Unit/500 Ml-Ns) 30 unit in 500 mls @ 250 mls/hr IV TITRATE [facility] Lactated Ringer's (Ringers, Lactated) 1,000 mls @ 125 mls/hr IV ASDIRECTED JUAN RAMON Last Admin: 05/13/17 01:30 Dose: 125 mls/hr Ibuprofen (Motrin) 800 mg PO Q8H PRN PRN Reason: mild pain or fever Last Admin: 05/14/17 04:50 Dose: 800 mg Ondansetron HCl (Zofran) 4 mg IV Q4H PRN PRN Reason: Nausea/Vomiting Last Admin: 05/13/17 01:30 Dose: 4 mg Oxycodone/Acetaminophen (Percocet 325-5 Mg) 1 - 2 tab PO Q6H PRN PRN Reason: Pain Stop: 05/14/17 14:00 Last Admin: 05/13/17 20:01 Dose: 2 tab Oxycodone/Acetaminophen (Percocet 325-5 Mg) 1 tab PO Q4H PRN PRN Reason: Pain (moderate 4-6) Oxycodone/Acetaminophen (Percocet 325-5 Mg) 2 tab PO Q4H PRN PRN Reason: Pain (moderate 4-6) Last Admin: 05/14/17 08:02 Dose: 2 tab Sodium Chloride (Saline Flush) 10 ml FLUSH ASDIRECTED PRN PRN Reason: Keep Vein Open Sodium Chloride (Saline Flush) 2.5 ml FLUSH ASDIRECTED PRN PRN Reason: Keep Vein Open Discontinued Medications Citric Acid/Sodium Citrate (Bicitra Solution) 30 ml PO .ONCE JUAN RAMON Diphenhydramine HCl (Benadryl) 25 mg IVPUSH Q4H PRN PRN Reason: Itching Stop: 05/13/17 22:00 Ephedrine Sulfate (Ephedrine Sulfate) Confirm Administered Dose 50 mg .ROUTE .STK-MED ONE Stop: 05/12/17 21:10 Gentamicin Sulfate (Gentamicin) 300 mg IV Q12H [facility] Last Admin: 05/13/17 11:24 Dose: Not Given Gentamicin Sulfate (Gentamicin) 300 mg IV Q12H [facility] Last Admin: 05/13/17 11:24 Dose: Not Given Lactated Ringer's (Ringers, Lactated) 1,000 mls @ 999 mls/hr IV .BOLUS JUAN RAMON Last Admin: 05/12/17 16:05 Dose: 999 mls/hr Oxytocin/Sodium Chloride (Oxytocin 30 Unit/500 Ml-Ns) 30 unit in 500 mls @ 250 mls/hr IV TITRATE JUAN RAMON Lactated Ringer's (Ringers, Lactated) 1,000 mls @ 500 mls/hr IV .BOLUS JUAN RAMON Clindamycin Phosphate 900 mg/ (Premix) 50 mls @ 100 mls/hr IV ASDIRECTED ONE Stop: 05/12/17 19:52 Last Admin: 05/13/17 11:24 Dose: Not Given Lactated Ringer's (Ringers, Lactated) 1,000 mls @ 500 mls/hr IV .BOLUS JUAN RAMON Oxytocin/Sodium Chloride (Oxytocin 30 Unit/500 Ml-Ns) 30 unit in 500 mls @ 250 mls/hr IV TITRATE JUAN RAMON Clindamycin Phosphate 900 mg/ (Premix) 50 mls @ 100 mls/hr IV ASDIRECTED ONE Stop: 05/12/17 19:52 Last Admin: 05/12/17 19:55 Dose: 100 mls/hr Clindamycin Phosphate (Cleocin In D5w) Confirm Administered Dose 50 mls @ as directed IV .STK-MED ONE Stop: 05/12/17 19:51 Last Admin: 05/13/17 11:20 Dose: Not Given Gentamicin Sulfate 300 mg/ (Sodium Chloride) 157.5 mls @ 315 mls/hr IV ONETIME ONE Stop: 05/12/17 20:44 Last Admin: 05/13/17 11:21 Dose: Not Given Ketorolac Tromethamine (Toradol) 30 mg IVPUSH Q6H [facility] Stop: 05/13/17 22:31 Last Admin: 05/13/17 22:04 Dose: 30 mg Midazolam HCl (Versed 1 Mg/Ml) Confirm Administered Dose 2 mg .ROUTE .STK-MED ONE Stop: 05/12/17 21:11 Morphine Sulfate (Duramorph Pf) Confirm Administered Dose 10 mg .ROUTE .STK-MED ONE Stop: 05/12/17 19:41 Nalbuphine HCl (Nubain) 5 mg IVPUSH Q3H PRN PRN Reason: Pruritis Stop: 05/13/17 22:00 Last Admin: 05/13/17 17:55 Dose: 5 mg Naloxone HCl (Narcan) 0.1 mg IVPUSH ONETIME PRN PRN Reason: Other Stop: 05/13/17 22:00 Oxytocin (Pitocin) Confirm Administered Dose 40 unit .ROUTE .STK-MED ONE Stop: 05/12/17 21:10 Phenylephrine HCl (Phenylephrine In Ns 100 Mcg/Ml) Confirm Administered Dose 1 mg .ROUTE .STK-MED ONE Stop: 05/12/17 21:10 Sodium Chloride (Saline Flush) 10 ml FLUSH ASDIRECTED PRN PRN Reason: Keep Vein Open Sodium Chloride (Saline Flush) 2.5 ml FLUSH ASDIRECTED PRN PRN Reason: Keep Vein Open Sodium Chloride (Saline Flush) 10 ml FLUSH ASDIRECTED PRN PRN Reason: Keep Vein Open Sodium Chloride (Saline Flush) 2.5 ml FLUSH ASDIRECTED PRN PRN Reason: Keep Vein Open Sodium Chloride (Saline Flush) 10 ml FLUSH ASDIRECTED PRN PRN Reason: Keep Vein Open Sodium Chloride (Saline Flush) 2.5 ml FLUSH ASDIRECTED PRN PRN Reason: Keep Vein Open - Infant Interaction Disposition, : in Room with Family Infant Interaction: Holding Feeding: Bottle Fed Infant (mother not established yet ) - Recovery Exam Fundal Tone: Firm Fundal Level: 1 Fingerbreadths Below Umbilicus Fundal Placement: Midline Lochia Amount: Scant Lochia Color: Rubra/Red Perineum Description: Intact, Minimal Bruising/Swelling Episiotomy/Laceration: None Bladder Status: Voiding Urinary Elimination: Voided - Exam Quality Assessment: Supplemental Oxygen General: Alert, Oriented Lungs: Clear to Auscultation, Normal Respiratory Effort Cardiovascular: Regular Rate, Regular Rhythm GI/Abdominal Exam: Normal Bowel Sounds Extremities: Normal Inspection (mild pitting pedal edema ), Non-Tender Wound/Incisions: Healing Well (Pfannestiel skin incision with steristrips in place c/d/i) Neurological: No New Focal Deficit Physical Findings Comment:: Normal exam - Problem List & Annotations (1) Previous section complicating SNOMED Code(s): 348887839 Code(s): O34.219 - MATERNAL CARE FOR UNSP TYPE SCAR FROM PREVIOUS DEL Status: Acute Current Visit: Yes - Problem List Review Problem List Initiated/Reviewed/Updated: Yes - Assessment Assessment:: 21 P2 s/p repeat POD2 , minimal lochia , has meet all postop goals . - Plan Plan:: D/C home today , encourage to continue to attempt ,Pain medication prn .
--- NOTE | 2017-05-14 10:14 | US ---
EXAM DATE: 05/12/17 PATIENT'S AGE: 21 Patient: DARREL VELAZQUEZ Facility: [place], [place] Site . Site : 1996 Study: US Extremity Right [id number] 11:46:03 PM Ordering Physician: Etelvina Mccarthy Final Report: INDICATION: RT LEG PAIN AND SWELLING TECHNIQUE: Ultrasound venous duplex lower right extremity. Compression venous exam was performed using ruiz-scale, color Doppler, and spectral Doppler imaging. COMPARISON: None FINDINGS: Sonographic imaging demonstrates the right common femoral, deep femoral, superficial femoral, popliteal, posterior tibial and greater saphenous and the contralateral left common femoral veins to be fully compressible with normal color Doppler blood flow. IMPRESSION: No evidence of deep venous thrombosis within the right lower extremity. Dictated by Omari Seth MD @ 05/13/2017 11:58:43 PM Dictated by: Omari Seth MD @ 05/14/2017 00:01:10 (Electronic Signature) Report Signed by Proxy. [facility]
== END 2017-05-14 11:15 | disposition home or self-care (01) | DRG 766 ==
LOC: MW.OBCHECK 14:39 → MW.OB 14:41 → UNDOADMIN 15:06 → MW.OB 15:06 → MW.OBCHECK 19:23 → MW.OB 19:42
PROVIDERS: ADMIT Obstetrics & Gynecology; ATTEND Obstetrics & Gynecology
PROC: 10D00Z1 Extraction of Products of Conception, Low, Open Approach (ICD-10-PCS; principal; 2017-05-12)
DX: O34.211 Maternal care for low transverse scar from previous cesarean delivery (principal); Z3A.36 36 weeks gestation of pregnancy; Z37.0 Single live birth; Z88.0 Allergy status to penicillin
CPT/HCPCS: 01961; 36415; 59025; 80053; 84550; 85014; 85018; 85027; 85384; 85610; 86850; 86900; 86901; 88307; 93971-26-RT; 93971-RT; A9270-GY; J1885; J2250; J2270; J2300; J2405; J2590; J7120

== ENCOUNTER 2018-01-09 12:15 | Emergency (ER) | payer MEDICAID ==
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
[2018-01-09 13:54] VITALS: BP 115/64
== END 2018-01-09 13:52 | disposition home or self-care (01) ==
LOC: MW.ED 12:15
DX: F41.9 Anxiety disorder, unspecified (principal); R13.10 Dysphagia, unspecified; J30.9 Allergic rhinitis, unspecified; F17.210 Nicotine dependence, cigarettes, uncomplicated; Z88.0 Allergy status to penicillin
CPT/HCPCS: 99282

== ENCOUNTER 2018-01-15 18:30 | Emergency (ER) | payer MEDICAID ==
[2018-01-15 19:55] LABS: CHLORIDE,CL 105 mmol/L (98-107); SODIUM,NA 139 mmol/L (136-145)
--- NOTE | 2018-01-15 20:10 | EDM.PDOC ---
ED HPI GENERAL MEDICAL PROBLEM - General Chief Complaint: General Stated Complaint: DIZZY, LIGHT HEADED, BLURRY VISION Time Seen by Provider: 01/15/18 20:32 - History of Present Illness INITIAL COMMENTS - FREE TEXT/NARRATIVE: HISTORY AND PHYSICAL: History of present illness: Patient is a 22-year-old female history of post traumatic stress disorder and depression who presents with a concern of dizziness headache weakness for several months she denies any fever chills nausea vomiting or other concern. She denies depression denies suicidal or homicidal ideation. Review of systems: As per history of present illness and below otherwise all systems reviewed and negative. Past medical history: As per history of present illness and as reviewed below otherwise noncontributory. Surgical history: As per history of present illness and as reviewed below otherwise noncontributory. Social history: No reported history of drug or alcohol abuse. Family history: As per history of present illness and as reviewed below otherwise noncontributory. Physical exam: HEENT: Atraumatic, normocephalic, pupils reactive, negative for conjunctival pallor or scleral icterus, mucous membranes moist, throat clear, neck supple, nontender, trachea midline. Lungs: Clear to auscultation, breath sounds equal bilaterally, chest nontender. Heart: S1S2, regular, negative for clicks, rubs, or JVD. Abdomen: Soft, nondistended, nontender. Negative for masses or hepatosplenomegaly. Negative for costovertebral tenderness. Pelvis: Stable nontender. Genitourinary: Deferred. Rectal: Deferred. Extremities: Atraumatic, negative for cords or calf pain. Neurovascular unremarkable. Neuro: Awake, alert, anxious, oriented. Cranial nerves II through XII unremarkable. Cerebellum unremarkable. Motor and sensory unremarkable throughout. Exam nonfocal. Diagnostics: CBC CMP troponin chest x-ray EKG CT brain urine drug screen [employer]: None Impression: Him or one medical screening exam #2 history of post traumatic stress disorder # 3 history of anxiety/depression Definitive disposition and diagnosis as appropriate pending reevaluation and review of above. - Related Data Allergies Allergy/AdvReac Type Severity Reaction Status Date / Time Penicillins Allergy Anaphylactic Verified 01/15/18 19:02 Shock Home Meds: Home Meds . [No Known Home Meds] 01/03/16 [History] Past Medical History - Past Health History Medical/Surgical History: Denies Medical/Surgical History Cardiovascular History: Reports: None Respiratory History: Reports: Asthma Gastrointestinal History: Reports: None [employer] History: Reports: , Other (See Below) Other OB/BYN History: c section Neurological History: Reports: Seizure Psychiatric History: Reports: Anxiety, Depression, PTSD Endocrine/Metabolic History: Reports: None - Infectious Disease History Infectious Disease History: Reports: Chicken Pox - Past Surgical History HEENT Surgical History: Reports: Adenoidectomy, Tonsillectomy, Other (See Below) Other HEENT Surgeries/Procedures: lymphectomy in neck. Social & Family History - Family History Family Medical History: Noncontributory - Tobacco Use Smoking Status *Q: Current Every Day Smoker Years of Tobacco use: 6 Packs/Tins Daily: 0.3 - Caffeine Use Caffeine Use: Reports: Soda - Recreational Drug Use Recreational Drug Use: No ED ROS GENERAL - Review of Systems Review Of Systems: ROS reveals no pertinent complaints other than HPI. ED EXAM, GENERAL - Physical Exam Exam: See Below (See dictation) Course - Vital Signs Last Recorded V/S: Last Vital Signs Temp 36.2 C 01/15/18 19:03 Pulse 102 H 01/15/18 19:03 Resp 16 01/15/18 19:03 BP 134/80 01/15/18 19:03 Pulse Ox 98 01/15/18 19:03 Orthostatic Blood Pressure [ 117/70 Standing] Orthostatic Blood Pressure [ 114/74 Sitting] Orthostatic Blood Pressure [ 112/72 Supine] - Orders/Labs/Meds Orders: Active Orders 24 hr Category Date Time Status EKG Documentation Completion [RC] STAT Care 01/15/18 19:17 Active Orthostatic Vital Signs [RC] ASDIRECTED Care 01/15/18 19:19 Active Head wo Cont [CT] Stat Exams 01/15/18 19:17 Taken DRUG SCREEN, URINE [URCHEM] Stat Lab 01/15/18 19:35 Ordered HCG QUALITATIVE,URINE [URCHEM] Stat Lab 01/15/18 19:35 Ordered UA W/MICROSCOPIC [URIN] Stat Lab 01/15/18 19:35 Ordered Labs: Laboratory Tests 01/15/18 01/15/18 01/15/18 Range/Units 19:23 19:23 19:35 WBC 9.55 (4.0-11.0) K/uL RBC 5.50 (4.30-5.90) M/uL Hgb 16.1 H (12.0-16.0) g/dL Hct 45.0 (36.0-46.0) % MCV 81.8 (80.0-98.0) fL MCH 29.3 (27.0-32.0) pg MCHC 35.8 (31.0-37.0) g/dL RDW Std Deviation 38.7 (28.0-62.0) fl RDW Coeff of Jagdeep 13 (11.0-15.0) % Plt Count 382 (150-400) K/uL MPV 10.10 (7.40-12.00) fL Neut % (Auto) 64.4 (48.0-80.0) % Lymph % (Auto) 26.4 (16.0-40.0) % Hood % (Auto) 7.0 (0.0-15.0) % Eos % (Auto) 1.9 (0.0-7.0) % Baso % (Auto) 0.3 (0.0-1.5) % Neut # (Auto) 6.2 H (1.4-5.7) K/uL Lymph # (Auto) 2.5 H (0.6-2.4) K/uL Hood # (Auto) 0.7 (0.0-0.8) K/uL Eos # (Auto) 0.2 (0.0-0.7) K/uL Baso # (Auto) 0.0 (0.0-0.1) K/uL Nucleated RBC % 0.0 /100WBC Nucleated RBCs # 0 K/uL Sodium 139 (136-145) mmol/L Potassium 3.8 (3.5-5.1) mmol/L Chloride 105 (98-107) mmol/L Carbon Dioxide 24.5 (21.0-32.0) mmol/L BUN 9 (7.0-18.0) mg/dL Creatinine 0.8 (0.6-1.0) mg/dL Est Cr Clr Drug Dosing 100.10 mL/min Estimated GFR (MDRD) > 60.0 ml/min Glucose 98 (74-106) mg/dL Calcium 9.3 (8.5-10.1) mg/dL Total Bilirubin 0.4 (0.2-1.0) mg/dL AST 19 (15-37) IU/L ALT 28 (14-63) IU/L Alkaline Phosphatase 137 H (46-116) U/L Troponin I < 0.050 (0.000-0.056) ng/mL Total Protein 7.6 (6.4-8.2) g/dL Albumin 4.0 (3.4-5.0) g/dL Globulin 3.6 H (2.0-3.5) g/dL Albumin/Globulin Ratio 1.1 L (1.3-2.8) Urine Color YELLOW Urine Appearance CLEAR Urine pH 6.0 (5.0-8.0) Ur Specific [place] 1.025 (1.001-1.035) Urine Protein NEGATIVE (NEGATIVE) mg/dL Urine Glucose (UA) NEGATIVE (NEGATIVE) mg/dL Urine Ketones NEGATIVE (NEGATIVE) mg/dL Urine Occult Blood NEGATIVE (NEGATIVE) Urine Nitrite NEGATIVE (NEGATIVE) Urine Bilirubin NEGATIVE (NEGATIVE) Urine Urobilinogen 0.2 (<2.0) EU/dL Ur Leukocyte Esterase NEGATIVE (NEGATIVE) Urine RBC 0-1 (0-2/HPF) Urine WBC 0-1 (0-5/HPF) Ur Epithelial Cells RARE (NONE-FEW) Urine Bacteria RARE (NEGATIVE) Urine HCG, Qual (NEGATIVE) Urine Opiates Screen (NEGATIVE) Ur Oxycodone Screen (NEGATIVE) Urine Methadone Screen (NEGATIVE) Ur Barbiturates Screen (NEGATIVE) Ur Phencyclidine Scrn (NEGATIVE) Ur Amphetamine Screen (NEGATIVE) U Methamphetamines Scrn (NEGATIVE) U Benzodiazepines Scrn (NEGATIVE) U Cocaine Metab Screen (NEGATIVE) U Marijuana (THC) Screen (NEGATIVE) 01/15/18 01/15/18 Range/Units 19:35 19:35 WBC (4.0-11.0) K/uL RBC (4.30-5.90) M/uL Hgb (12.0-16.0) g/dL Hct (36.0-46.0) % MCV (80.0-98.0) fL MCH (27.0-32.0) pg MCHC (31.0-37.0) g/dL RDW Std Deviation (28.0-62.0) fl RDW Coeff of Jagdeep (11.0-15.0) % Plt Count (150-400) K/uL MPV (7.40-12.00) fL Neut % (Auto) (48.0-80.0) % Lymph % (Auto) (16.0-40.0) % Hood % (Auto) (0.0-15.0) % Eos % (Auto) (0.0-7.0) % Baso % (Auto) (0.0-1.5) % Neut # (Auto) (1.4-5.7) K/uL Lymph # (Auto) (0.6-2.4) K/uL Hood # (Auto) (0.0-0.8) K/uL Eos # (Auto) (0.0-0.7) K/uL Baso # (Auto) (0.0-0.1) K/uL Nucleated RBC % /100WBC Nucleated RBCs # K/uL Sodium (136-145) mmol/L Potassium (3.5-5.1) mmol/L Chloride (98-107) mmol/L Carbon Dioxide (21.0-32.0) mmol/L BUN (7.0-18.0) mg/dL Creatinine (0.6-1.0) mg/dL Est Cr Clr Drug Dosing mL/min Estimated GFR (MDRD) ml/min Glucose (74-106) mg/dL Calcium (8.5-10.1) mg/dL Total Bilirubin (0.2-1.0) mg/dL AST (15-37) IU/L ALT (14-63) IU/L Alkaline Phosphatase (46-116) U/L Troponin I (0.000-0.056) ng/mL Total Protein (6.4-8.2) g/dL Albumin (3.4-5.0) g/dL Globulin (2.0-3.5) g/dL Albumin/Globulin Ratio (1.3-2.8) Urine Color Urine Appearance Urine pH (5.0-8.0) Ur Specific [place] (1.001-1.035) Urine Protein (NEGATIVE) mg/dL Urine Glucose (UA) (NEGATIVE) mg/dL Urine Ketones (NEGATIVE) mg/dL Urine Occult Blood (NEGATIVE) Urine Nitrite (NEGATIVE) Urine Bilirubin (NEGATIVE) Urine Urobilinogen (<2.0) EU/dL Ur Leukocyte Esterase (NEGATIVE) Urine RBC (0-2/HPF) Urine WBC (0-5/HPF) Ur Epithelial Cells (NONE-FEW) Urine Bacteria (NEGATIVE) Urine HCG, Qual NEGATIVE (NEGATIVE) Urine Opiates Screen NEGATIVE (NEGATIVE) Ur Oxycodone Screen NEGATIVE (NEGATIVE) Urine Methadone Screen NEGATIVE (NEGATIVE) Ur Barbiturates Screen NEGATIVE (NEGATIVE) Ur Phencyclidine Scrn NEGATIVE (NEGATIVE) Ur Amphetamine Screen NEGATIVE (NEGATIVE) U Methamphetamines Scrn NEGATIVE (NEGATIVE) U Benzodiazepines Scrn NEGATIVE (NEGATIVE) U Cocaine Metab Screen NEGATIVE (NEGATIVE) U Marijuana (THC) Screen NEGATIVE (NEGATIVE) Departure - Departure Time of Disposition: 20:32 Disposition: Home, Self-Care 01 Condition: Good Clinical Impression: Encounter for medical screening examination, Dizziness, Cephalgia, History of posttraumatic stress disorder (PTSD), History of anxiety, History of depression - Discharge Information Referrals: Mayito Pool MD [Primary Care Provider] - Forms: ED Department Discharge Additional Instructions: The following information is given to patients seen in the emergency department who are being discharged to home. This information is to outline your options for follow-up care. We provide all patients seen in our emergency department with a follow-up referral. The need for follow-up, as well as the timing and circumstances, are variable depending upon the specifics of your emergency department visit. If you don't have a primary care physician on staff, we will provide you with a referral. We always advise you to contact your personal physician following an emergency department visit to inform them of the circumstance of the visit and for follow-up with them and/or the need for any referrals to a consulting specialist. The emergency department will also refer you to a specialist when appropriate. This referral assures that you have the opportunity for followup care with a specialist. All of these measure are taken in an effort to provide you with optimal care, which includes your followup. Under all circumstances we always encourage you to contact your private physician who remains a resource for coordinating your care. When calling for followup care, please make the office aware that this follow-up is from your recent emergency room visit. If for any reason you are refused follow-up, please contact the [facility] emergency department at and asked to speak to the emergency department charge nurse. Follow-up [facility] as discussed follow-up private medical doctor as discussed return as needed as discussed[]
[2018-01-15 20:43] VITALS: BP 119/74
--- NOTE | 2018-01-16 08:25 | CT ---
EXAM DATE: 01/15/18 PATIENT'S AGE: 22 Patient: DARREL VELAZQUEZ Facility: [place], [place] Site . Site : 1995 Study: CT Head [id number]/13/2018 7:56:07 PM Ordering Physician: Doctor Sims Final Report: INDICATION: CHAPPELL, hx of migraines CT HEAD WITHOUT CONTRAST TECHNIQUE: Multiple axial CT images were performed through the head without intravenous contrast administration. COMPARISON: No previous studies are currently available for comparison. FINDINGS: No acute intracranial hemorrhage is identified. No extra-axial collections are evident and there is no mass effect or midline shift. Ventricles are normal in size and configuration. Brain parenchyma appears normal with unremarkable ruiz-white differentiation. Osseous structures are within normal limits and no fractures are seen. Included portions of the paranasal sinuses and mastoid air cells are normally aerated. IMPRESSION: Normal non-contrast head CT. ALCIDES CANAS MD [employer] Dictated by: Samuel Canas MD @ 01/15/2018 19:58:20 (Electronic Signature) Report Signed by Proxy. [facility]
== END 2018-01-15 20:40 | disposition home or self-care (01) ==
LOC: MW.ED 18:30
DX: R42 Dizziness and giddiness (principal); R51 Headache; F17.210 Nicotine dependence, cigarettes, uncomplicated; Z88.0 Allergy status to penicillin
CPT/HCPCS: 36415; 70450; 70450-26; 80053; 80305; 81001; 81025; 84484; 85025; 93005; 99283; 99284-25